=== PATIENT | female | born 1965 | race Caucasian/White ===

== ENCOUNTER 2018-03-13 09:39 | Inpatient (IN) | payer OTHER ==
[2018-03-12 12:42] VITALS: BMI 47.0
[~2018-03-13 09:39] MED LIST: BUPIVACAINE HCL/PF 0.5% (5MG/ML) 10 ML VIAL IJ ONE
--- NOTE | 2018-03-13 10:45 | HP ---
Admitting History and Physical - Admission Chief Complaint: Morbid obesity History Source: Patient Limitations to Obtaining History: No Limitations - Past Medical History Cardiovascular: Yes: HTN ...LMP: 12/31/17 ...: No - Smoking History Smoking history: Former smoker Have you smoked in the past 12 months: No - Alcohol/Substance Use Hx Alcohol Use: Yes (social) Home Medications - Allergies Allergies/Adverse Reactions: Allergies Allergy/AdvReac Type Severity Reaction Status Date / Time No Known Allergies Allergy Verified 03/12/18 12:34 - Home Medications Home Medications: Ambulatory Orders Levothyroxine Sodium [Levo-T] 100 mcg PO DAILY 03/12/18 Losartan/Hydrochlorothiazide [Losartan-Hctz 50-12.5 mg Tab] 1 each PO DAILY Famotidine [Pepcid] 20 mg PO BID #60 tablet 03/13/18 Oxycodone HCl/Acetaminophen [Percocet 5-325 mg Tablet] 1 - 2 tab PO Q6H #28 tab MDD 4 03/13/18 Family Disease History - Family Disease History Family History: Denies Review of Systems - Review of Systems Constitutional: denies: Chills, Fever HENT: reports: No Symptoms Neck: reports: No Symptoms Cardiovascular: reports: No Symptoms Respiratory: reports: No Symptoms Gastrointestinal: reports: No Symptoms Neurological: reports: No Symptoms Pain Intensity: 0 Physical Examination Vital Signs: Vital Signs Temperature 98.8 F 03/12/18 12:35 Pulse Rate 73 03/12/18 12:35 Respiratory Rate 20 03/12/18 12:35 Blood Pressure 131/77 03/12/18 12:35 O2 Sat by Pulse Oximetry (%) Constitutional: Yes: No Distress HENT: Yes: WNL Neck: Yes: WNL Cardiovascular: Yes: WNL Respiratory: Yes: WNL Gastrointestinal: Yes: Soft, Abdomen, Obese Neurological: Yes: Alert, Oriented Problem List - Problems (1) Morbid obesity due to excess calories Code(s): E66.01 - MORBID (SEVERE) OBESITY DUE TO EXCESS CALORIES (2) BMI 45.0-49.9, adult Code(s): Z68.42 - BODY MASS INDEX (BMI) 45.0-49.9, ADULT (3) Hypertension Code(s): I10 - ESSENTIAL (PRIMARY) HYPERTENSION Qualifiers: Hypertension type: unspecified Qualified Code(s): I10 - Essential (primary ) hypertension Assessment/Plan Laparoscopic possible open vertical sleeve gastrectomy, possible liver biopsy, EGD
[2018-03-13] MEDS ORDERED: ROCURONIUM BROMIDE 50 MG/5 ML VIAL ONE ×2 (11:13→12:45)
[2018-03-13] MEDS ORDERED: MIDAZOLAM HCL 2 MG/2 ML SINGLE DOSE VIAL ONE (11:13)
[2018-03-13] MEDS ORDERED: PROPOFOL 20 ML ONE (11:13)
[2018-03-13] MEDS ORDERED: fentaNYL CITRATE 250 MCG/5 ML VIAL ONE (11:13)
[2018-03-13] MEDS ORDERED: LIDOCAINE HCL/PF 2% SDV 5ML VIAL ONE (11:15)
[2018-03-13] MEDS ORDERED: DEXAMETHASONE SOD PHOSPHATE 4 MG/1 ML VIAL ONE (11:15)
[2018-03-13] MEDS ORDERED: ONDANSETRON 4 MG/2 ML VIAL IVPUSH PRN (11:26)
[2018-03-13] MEDS ORDERED: LACTATED RINGERS SOLUTION 1,000 ML IV SCH (11:30)
[2018-03-13] MEDS ORDERED: BUPIVACAINE HCL/PF 0.5% (5MG/ML) 10 ML VIAL ONE ×2 (11:32→12:10)
[2018-03-13] MEDS ORDERED: ceFAZolin SODIUM 1 GM VIAL IVPB ONE (11:55)
[2018-03-13] MEDS ORDERED: ceFAZolin SODIUM 1 GM VIAL ONE (12:00)
[2018-03-13] MEDS ORDERED: BUPIVACAINE HCL/PF 0.5% (5MG/ML) 10 ML VIAL IJ ONE (12:12)
[2018-03-13] MEDS ORDERED: ePHEDrine SULFATE 50 MG/1 ML AMPULE ONE (12:29)
--- NOTE | 2018-03-13 13:26 | OP ---
Operative Note - Note: Operative Date: 03/13/18 Pre-Operative Diagnosis: Morbid obesity. BMI 47 Operation: Laparoscopic vertical sleeve gastrectomy, wedge liver biopsy, EGD Post-Operative Diagnosis: Other (Morbid obesity, BMiI 47, hepatomegaly) Surgeon: Tano Lambert (Nalini Marlow) Orchard Pruner: Dre Antonio Anesthesia: General Specimens Removed: Greater curvature of stomach. Wedge liver biopsy Estimated Blood Loss (mls): 30 Drains & Tubes with Location: 36 Fr Bougie Operative Report Dictated: Yes
[2018-03-13] MEDS ORDERED: SODIUM CHLORIDE 1,000 ML IV SCH (13:30)
--- NOTE | 2018-03-13 13:43 | SPEC ---
DATE OF OPERATION: 03/13/2018 SURGEON: Tano Lambert MD PARTS CLERK PLANT MAINTENANCE: AIDEN Cash and Nalini Marlow PREOPERATIVE DIAGNOSES: 1. Morbid obesity. 2. Body mass index 47.1. POSTOPERATIVE DIAGNOSES: 1. Morbid obesity. 2. Body mass index 47.1. 3. Hepatomegaly. PROCEDURES: 1. Laparoscopic vertical sleeve gastrectomy. 2. Laparoscopic wedge liver biopsy. 3. Upper endoscopy. SPECIMENS: 1. Greater curvature of the stomach. 2. Wedge liver biopsy. ESTIMATED BLOOD LOSS: 30 mL. DRAIN: None. ANESTHESIA: GET. BOUGIE SIZE: 36 Filipino. REASON FOR PROCEDURE: This 52-year-old female presents for weight loss options. After describing the different weight loss options, she decided to proceed with a laparoscopic, possible open, vertical sleeve gastrectomy, possible liver biopsy, and upper endoscopy. The risks and benefits of the procedure were explained. RISKS AND BENEFITS: After describing the different options for management of weight loss, the patient decided to proceed with a robotic laparoscopic, possible open vertical sleeve gastrectomy. The patient was seen by the respective subspecialities and cleared for surgery. The risks and benefits of the procedure were explained. These included bleeding, infection, hernia, OH, DVT, PE, injury to surrounding structures including the liver, colon, bowel, spleen, esophagus, vessel injury, nerve injury, weight regain, gastric leak, staple line leak, sleeve leak, obstruction, vitamin deficiency, hair loss, and as some of the possible complications. The patient understood and signed informed consent. DESCRIPTION OF PROCEDURE: The patient was placed supine on the operating room table. The patient underwent general endotracheal intubation. A Barnhart catheter was inserted by the nursing staff. The arms were brought out at 90 degrees and secured. A foot board was placed, and the legs were secured laterally with padding. The abdomen was prepped and draped in the usual sterile fashion. A time-out was performed. An incision was made superior and to the left of the umbilicus. A Veress needle was inserted. Pneumoperitoneum was established. Subsequently the Veress needle was removed. An 8-mm robotic trocar was placed under direct visualization with the laparoscope. Inspection of the abdominal cavity was performed. An 8-mm trocar was then placed in the left abdominal wall approximately 6 to 7 cm to the left of the initial trocar. An 8-mm robotic trocar was then placed in the left abdominal wall approximately 6 to 7 cm to the left of the initial trocar. A 12-mm robotic trocar was then placed in the right abdominal wall approximately 6 to 7 cm to the right of the initial trocar and an 8-mm robotic trocar placed approximately 6 to 7 cm lateral to the 12-mm trocar. A stab wound was made in the subxiphoid area and a Claudia clamp inserted and removed to dilate the tract. A Arun liver retractor was inserted. The post was secured at the bedside by the nursing staff. The patient was placed in steep reverse Trendelenburg position and the Arun liver retractor was used to secure the liver towards the anterior abdominal wall. The robot was brought over the field and docked. Dissection was performed at the console. The pylorus was identified and 6 cm proximal to it the lesser sac was entered using the vessel sealer. From this point cephalad, all lateral attachments to the greater curvature of the stomach including the short gastric vessels were ligated using the vessel sealer towards the gastrosplenic and gastrophrenic ligaments. Once this was done in its entirety, all tubes within the nasal or oropharyngeal cavity including a temperature probe was confirmed to be removed by Anesthesia. The bougie was then inserted by Anesthesia. Transection of the stomach was then begun staying adjacent to the bougie, but away from the angularis. Transection of the stomach was performed near the portion of the stomach where the lesser sac was entered. Two robotic green germain were used at this location. Robotic blue germain were then used for the remainder of the transection until the greater curvature of the stomach was fully transected. Again, this was done staying close to the bougie. Care was taken to stay away from the angle of His cephalad. The staple line was then inspected. Hemostasis was identified. A leak test was then performed. The stomach was clamped distally to the staple line. Irrigation solution was placed in the left upper quadrant and air insufflated by Anesthesia into the sleeve. No leaks were identified, and no obstruction was identified. This was done throughout the staple line. At this point, the irrigation solution was suctioned and again hemostasis noted. A wedge liver biopsy was then performed. A portion of the left lobe of the liver was identified and an edge of it grasped. Using electrocautery, a wedge of this portion of the liver was excised. The specimen was removed from the abdominal cavity and sent off the field. Hemostasis of the biopsy site as attained using electrocautery. The robotic instruments were then removed. The robot was undocked from the operative field. The 12-mm robotic trocar was removed, and the greater curvature specimen removed from this site using a sponge stick edwards. The specimen was inspected and the Veress needle inserted. The specimen insufflated adequately, and no leak was identified. The staple line was noted to be straight and intact. A Bryan-Cezar device was then used to close the fascia with a 0 Vicryl suture at this site. The liver retractor was removed under direct visualization. Pneumoperitoneum was desufflated and the fascial suture was secured. Hemostasis was noted at all incision sites and Marcaine was injected at all incision sites. All incision sites were closed using 4-0 Biosyn. Sterile dressings were applied. The patient tolerated the procedure well and was transferred to the recovery room in stable condition with a Barnhart catheter intact. The patient was transferred to telemetry for further monitoring. [place] [id number]
--- NOTE | 2018-03-13 13:59 | SURG ---
Surgery Hole Digger Operator Note Hole Digger Operator: Dre Antonio PA-C Date of Service: 03/13/18 Diagnosis: morbid obesity Procedure: Laparoscopic vertical sleeve gastrectomy, wedge liver biopsy, EGD I was present for the entirety of the operative procedure. For further detail, please refer to operative report. Visit type - Case Type Case Type: Scheduled - New patient This patient is new to me today: Yes Date on this admission: 03/13/18
[2018-03-13] MEDS: METOCLOPRAMIDE HCL INJECTION 10 MG/2 ML VIAL IVPUSH SCH ×2 (14:00→21:26)
[2018-03-13] MEDS: ONDANSETRON 4 MG/2 ML VIAL IVPUSH SCH ×3 (14:30→22:26)
[2018-03-13] MEDS: ACETAMINOPHEN 1000 MG/100 ML VIAL (NON FORMULARY) IVPB SCH ×2 (14:55→20:00)
[2018-03-13 15:06] LABS: HEMATOCRIT 38.4 % (32.4-45.2); HEMOGLOBIN 12.9 GM/dL (10.7-15.3); MCH 31.3 pg (25.7-33.7); MCHC 33.5 g/dl (32.0-36.0); MEAN CELL VOLUME 93.4 fl (80-96); PLATELET COUNT 241 K/MM3 (134-434); RBC 4.11 M/mm3 (3.60-5.2); RDW 13.3 % (11.6-15.6); WHITE BLOOD COUNT 8.6 K/mm3 (4.0-10.0)
[2018-03-13 15:37] LABS: ALBUMIN 3.4 g/dl (3.4-5.0); ALK PHOS 93 U/L (45-117); ANION GAP 6 MMOL/L (8-16); BILIRUBIN,TOTAL 0.2 mg/dL (0.2-1); BLOOD UREA NITROGEN 12 mg/dL (7-18); CALCIUM 8.2 mg/dL (8.5-10.1); CHLORIDE 107 mmol/L (98-107); CO2 28 mmol/L (21-32); CREATININE 0.7 mg/dL (0.55-1.3); GLUCOSE,RANDOM 140 mg/dL (74-106); POTASSIUM 3.6 mmol/L (3.5-5.1); SGOT/AST 120 U/L (15-37); SGPT/ALT 100 U/L (13-61); SODIUM 141 mmol/L (136-145)
[2018-03-13] MEDS: morphine SULFATE 4 MG/ML VIAL IVPUSH PRN (17:22)
[2018-03-13] MEDS: ENOXAPARIN NA (PORCINE) 40 MG/0.4 ML DISP.SYRIN SQ SCH (22:30)
[2018-03-13] MEDS: FAMOTIDINE 20 MG/50 ML IVPB 20 MG/50 ML MG IVPB SCH (22:31)
[2018-03-14] MEDS: METOCLOPRAMIDE HCL INJECTION 10 MG/2 ML VIAL IVPUSH SCH ×2 (02:13→09:48)
[2018-03-14] MEDS: ACETAMINOPHEN 1000 MG/100 ML VIAL (NON FORMULARY) IVPB SCH ×2 (02:13→08:06)
[2018-03-14] MEDS: ONDANSETRON 4 MG/2 ML VIAL IVPUSH SCH ×3 (02:14→09:56)
[2018-03-14 06:21] LABS: HEMATOCRIT 34.2 % (32.4-45.2); HEMOGLOBIN 11.1 GM/dL (10.7-15.3); MCH 30.4 pg (25.7-33.7); MCHC 32.5 g/dl (32.0-36.0); MEAN CELL VOLUME 93.6 fl (80-96); MEAN PLT VOLUME 9.1 fl (7.5-11.1); PLATELET COUNT 216 K/MM3 (134-434); RBC 3.66 M/mm3 (3.60-5.2); RDW 13.3 % (11.6-15.6); WHITE BLOOD COUNT 6.9 K/mm3 (4.0-10.0)
[2018-03-14 06:53] LABS: ALBUMIN 2.9 g/dl (3.4-5.0); ALK PHOS 76 U/L (45-117); ANION GAP 7 MMOL/L (8-16); BILIRUBIN,TOTAL 0.4 mg/dL (0.2-1); BLOOD UREA NITROGEN 13 mg/dL (7-18); CALCIUM 8.2 mg/dL (8.5-10.1); CHLORIDE 108 mmol/L (98-107); CO2 27 mmol/L (21-32); CREATININE 0.6 mg/dL (0.55-1.3); GLUCOSE,RANDOM 85 mg/dL (74-106); POTASSIUM 3.8 mmol/L (3.5-5.1); SGOT/AST 78 U/L (15-37); SGPT/ALT 81 U/L (13-61); SODIUM 142 mmol/L (136-145)
[2018-03-14] MEDS: morphine SULFATE 4 MG/ML VIAL IVPUSH PRN (07:03)
--- NOTE | 2018-03-14 08:10 | PN ---
Progress Note (short form) - Note Progress Note: Pt seen and examined. States she is feeling well this morning. Denies any abdominal pain or discomfort. Tolerating ice chips without n/v. Has been oob to the restroom without issue. +Voiding. Denies cp, sob, calf pain/tenderness. Vital Signs Temp 98.8 F 03/14/18 06:00 Pulse 86 03/14/18 06:00 Resp 18 03/14/18 06:00 BP 126/68 03/14/18 06:00 Pulse Ox 97 03/13/18 21:00 Intake & Output 03/13/18 03/13/18 03/14/18 11:59 23:59 11:59 Intake Total 8592 147 5098 Output Total 575 Balance 4814 378 9033 Weight 203 lb Intake: IV 6111 482 2941 Normal Saline - 1,000 ml 300 1800 @ 150 mls/hr IV ASDIR XIMENA Rx#:[id number] IVPB 100 200 Output: Urine 550 Void 550 Estimated Blood Loss 25 Other: Voiding Method Toilet # Unmeasured Voids Void 1 2 Weight Measurement Method Standing Scale CBC, BMP 03/14/18 05:30 03/14/18 05:30 Gen: awake, alert, in nad. Laying in bed. Resp: cta b/l CV: rrr, s1s2, no murmur appreciated Abdomen: soft, nontender, nondistended. Bandaids c/d/i, no bleeding, no surrounding erythema or ecchymosis noted. No palpable hematoma. A/P: 52 y/o F w/ PMHx HTN, hypothyroidism, morbid obesity, now POD 1, s/p Laparoscopic vertical sleeve gastrectomy, wedge liver biopsy, EGD. Doing well post op, no pain, VSS, Labs wnl. P: Upper GI series this AM Pain control with Ofirmev 1g q6h, Morphine 4mg q4hrs prn DVT prophylaxis with Lovenox 40mg bid, b/l SCDS, b/l TEDS GI prophylaxis with Pepcid 20mg IV BID Zofran 4mg q4hrs prn n/v Remote tele/continuous pulse ox Monitor VS Monitor I&Os OOB ad juan Continue IVF Incentive spirometry <Marielos Marlow - Last Filed: 03/14/18 08:23> - Note Progress Note: POD 1 Pain controlled No nausea AVSS Abd soft UGI: no leak/obstruction Clears Discharge home <Tano Lambert - Last Filed: 03/14/18 12:40> Problem List - Problems (1) Morbid obesity due to excess calories Code(s): E66.01 - MORBID (SEVERE) OBESITY DUE TO EXCESS CALORIES (2) BMI 45.0-49.9, adult Code(s): Z68.42 - BODY MASS INDEX (BMI) 45.0-49.9, ADULT (3) Hypertension Code(s): I10 - ESSENTIAL (PRIMARY) HYPERTENSION Qualifiers: Hypertension type: unspecified Qualified Code(s): I10 - Essential (primary ) hypertension <Tano Lambert - Last Filed: 03/14/18 12:40>
[2018-03-14 09:47] VITALS: BP 129/84; PULSE 81; TEMP 99.1
[2018-03-14] MEDS: ENOXAPARIN NA (PORCINE) 40 MG/0.4 ML DISP.SYRIN SQ SCH (09:48)
[2018-03-14] MEDS: FAMOTIDINE 20 MG/50 ML IVPB 20 MG/50 ML MG IVPB SCH (09:48)
[2018-03-14] MEDS ORDERED: oxyCODONE HCL 5 MG TABLET PO PRN (12:30)
[2018-03-14] MEDS ORDERED: SODIUM CHLORIDE 1,000 ML IV SCH (12:30)
--- NOTE | 2018-03-15 16:22 | PATH ---
Surgical Pathology Report Patient Name: VERA TY [facility]. Rec. #: [id number] /Age/Gender: 1965 (Age: 52) / F Account: [id number] Location: 4 W TELEMETRY U Taken: 03/13/2018 Received: 03/14/2018 Reported: 03/15/2018 Physicians: Tano Lambert M.D. Specimen(s) Received A: GREATER CURVATURE STOMACH B: LIVER WEDGE BIOPSY Clinical History Morbid obesity Final Diagnosis A. STOMACH, GREATER CURVATURE, LAPAROSCOPIC VERTICAL SLEEVE GASTRECTOMY: PORTION OF STOMACH WITH MODERATE CHRONIC ACTIVE GASTRITIS. IMMUNOHISTOCHEMICAL STAIN FOR H. PYLORI IS POSITIVE (MANY). B. LIVER, BIOPSY: LIVER PARENCHYMA WITH MILD STEATOSIS (~15-20%). NO INCREASE IN IRON AND FIBROSIS ON PERFORMED SPECIAL STAINS (IRON AND TRICHROME). Electronically Signed Cayla Mcclure M.D. Gross Description A. Received in formalin, labeled "greater curvature of stomach," is a 93 gram, 15 x 4 x 3 cm. portion of stomach with a stapled margin of resection. The serosa is humphries-felix with minimal attached fat. The mucosa is humphries-pink with normal folds. No mucosal masses are identified. Lung Puller sections are submitted in one cassette. B. Received in formalin labeled as "wedge liver biopsy" is an irregular fragment of humphries liver tissue measuring 2 x 1.5 x 1.5 cm. Lung Puller sections are submitted in one cassette. MLSZ/03/14/2018 sansantosh/03/14/2018
== END 2018-03-14 13:44 | disposition home or self-care (01) | DRG 403 ==
LOC: JSAMEDAYSX 09:39 → EDSTATUS 12:00 → J4W 17:19
PROVIDERS: ADMIT Surgery; ATTEND Surgery
PROC: 0DB64Z3 Excision of Stomach, Percutaneous Endoscopic Approach, Vertical (ICD-10-PCS; principal; 2018-03-13 12:00)
PROC: 0FB24ZX Excision of Left Lobe Liver, Percutaneous Endoscopic Approach, Diagnostic (ICD-10-PCS; 2018-03-13 12:00)
PROC: 8E0W4CZ Robotic Assisted Procedure of Trunk Region, Percutaneous Endoscopic Approach (ICD-10-PCS; 2018-03-13 12:00)
DX: E66.01 Morbid (severe) obesity due to excess calories (principal); Z68.42 Body mass index [BMI] 45.0-49.9, adult; I10 Essential (primary) hypertension; Z87.891 Personal history of nicotine dependence; R16.0 Hepatomegaly, not elsewhere classified
CPT/HCPCS: 36415; 74241-TC-FY; 80053; 84703; 85027; 86850; 86900; 86901; 88307-TC; 94760; J0131; J7030

== ENCOUNTER 2020-01-01 15:33 | Emergency (ER) | payer OTHER ==
[2020-01-01 15:42] VITALS: TEMP 98.6; BMI 30.9
--- NOTE | 2020-01-01 16:11 | PDOC ---
History of Present Illness <Elisha Souza - Last Filed: 01/01/20 17:34> - History of Present Illness Initial Comments: 01/01/20 16:05 54 y/o F with PMH of HTN andh Hypothyroid presents foe evaluation of lightheadedness and R anterior thigh numbness x3 weeks. No systemic symptoms. <Donaldo Cabrera - Last Filed: 01/01/20 18:53> - General Chief Complaint: Lightheaded Stated Complaint: RT. LEG NUMBNESS Time Seen by Provider: 01/01/20 15:57 Past History <Elisha Souzadareksimran - Last Filed: 01/01/20 17:34> - Medical History Anemia: No Asthma: Yes Cancer: No Cardiac Disorders: No COPD: No CHF: No Dementia: No Diabetes: No HTN: Yes Thyroid Disease: Yes - Surgical History Abdominal Surgery: Yes (liposuction) - Immunization History Immunization Up to Date: No - Psycho-Social/Smoking History Smoking History: Never smoked Have you smoked in the past 12 months: No Information on smoking cessation initiated: No - Substance Abuse Hx (Audit-C & DAST Scrn) How often the patient has a drink containing alcohol: Never Score: In Men: 4 or > Positive; In Women: 3 or > Positive: 0 Screen Result (Pos requires Nsg. Audit-10AR): Negative In the last yr the pt used illegal drug/Rx for NonMed reason: No Score: Yes response is considered Positive: 0 Screen Result (Positive result requires Nsg. DAST-10): Negative <Donaldo Cabrera - Last Filed: 01/01/20 18:53> - Medical History Allergies/Adverse Reactions: Allergies Allergy/AdvReac Type Severity Reaction Status Date / Time No Known Allergies Allergy Verified 03/13/18 10:52 Home Medications: Ambulatory Orders Levothyroxine Sodium [Levo-T] 100 mcg PO DAILY 03/12/18 Losartan/Hydrochlorothiazide [Losartan-Hctz 50-12.5 mg Tab] 1 each PO DAILY 03/12/18 Famotidine [Pepcid] 20 mg PO BID #60 tablet 03/13/18 Oxycodone HCl/Acetaminophen [Percocet 5-325 mg Tablet] 1 - 2 tab PO Q6H #28 tab MDD 4 03/13/18 Review of Systems - Review of Systems Cardiac (ROS): Yes: Lightheadedness. No: Chest Pain Neurological: Yes: Numbness <Donaldo Cabrera - Last Filed: 01/01/20 18:53> *Physical Exam - Vital Signs Last Vital Signs Temp Pulse Resp BP Pulse Ox 98.6 F 82 16 144/94 99 01/01/20 15:40 01/01/20 15:40 01/01/20 15:40 01/01/20 15:40 01/01/20 15:40 <Elisha Souza - Last Filed: 01/01/20 17:34> - Vital Signs Last Vital Signs Temp Pulse Resp BP Pulse Ox 98.6 F 82 16 144/94 99 01/01/20 15:40 01/01/20 15:40 01/01/20 15:40 01/01/20 15:40 01/01/20 15:40 - Physical Exam 01/01/20 18:51 GENERAL: The patient is awake, alert, and fully oriented, in no acute distress. HEAD: Normal with no signs of trauma. EYES: sclera anicteric, conjunctiva clear. ENT: Ears normal tympanic membranes normal oropharynx clear uvula midline NECK: Normal range of motion LUNGS: Breath sounds equal, clear to auscultation bilaterally. No wheezes, and no crackles. HEART: S1 and S2 without murmur, rub or gallop. ABDOMEN: Soft, nontender, normoactive bowel sounds. No guarding, no rebound. No masses. EXTREMITIES: Normal range of motion, no edema. No clubbing or cyanosis. No cords, erythema, or tenderness. NEUROLOGICAL: Cranial nerves II through XII grossly intact. PSYCH: Normal mood, normal affect. SKIN: Warm, Dry, normal turgor, no rashes or lesions noted. Lumbar spine skin color temperature normal range of motion is slightly decreased. No midline tenderness. Moderate bilateral paralumbar musculature spasm and tenderness 5 out of 5 strength bilateral lower extremities without gross sensorimotor deficits thighs and calves are soft and nontender neurovascular intact negative straight leg raise test <Donaldo Cabrera - Last Filed: 01/01/20 18:53> Heart Score/ECG Review #1 ECG reviewed & interpreted by me at: 16:30 General ECG Interpretation: Sinus Rhythm, Normal Rate, Normal Intervals 01/01/20 17:34 EKG normal sinus rhythm 60 bpm, no interval abnormalities, narrow QRS, ST and T wave segments and morphology normal. <Elisha Souza - Last Filed: 01/01/20 17:34> ED Treatment Course - LABORATORY CBC & Chemistry Diagram: 01/01/20 16:15 01/01/20 16:15 - ADDITIONAL ORDERS Additional order review: Laboratory Results 01/01/20 01/01/20 01/01/20 16:55 16:15 16:15 PT with INR 11.60 INR 0.98 Sodium 140 Potassium 3.6 Chloride 103 Carbon Dioxide 31 Anion Gap 6 L BUN 18.5 H Creatinine 0.7 Est GFR (CKD-EPI)AfAm 113.05 Est GFR (CKD-EPI)NonAf 97.54 Random Glucose 86 Calcium 9.1 Total Bilirubin 0.5 AST 21 ALT 25 Alkaline Phosphatase 112 Creatine Kinase 91 Troponin I < 0.02 Total Protein 7.6 Albumin 3.8 Urine Color Yellow Urine Appearance Clear Urine pH 7.5 Ur Specific [place] 1.005 L Urine Protein Negative Urine Glucose (UA) Negative Urine Ketones Negative Urine Blood Negative Urine Nitrite Negative Urine Bilirubin Negative Urine Urobilinogen 0.2 Ur Leukocyte Esterase Trace Urine WBC (Auto) 29 Urine RBC (Auto) 7 Urine Casts (Auto) 0 U Epithel Cells (Auto) 12 Urine Bacteria (Auto) 86 01/01/20 16:15 RBC 4.01 MCV 96.5 H MCHC 33.5 RDW 13.6 MPV 9.1 Neutrophils % 58.2 Lymphocytes % 32.8 Monocytes % 7.4 Eosinophils % 0.9 Basophils % 0.7 <Elisha Souza - Last Filed: 01/01/20 17:34> - LABORATORY CBC & Chemistry Diagram: 01/01/20 16:15 01/01/20 16:15 - RADIOLOGY Radiology Studies Ordered: Category Date Time Status CHEST PA & LAT [RAD] Stat Radiology 01/01/20 15:58 Ordered <Donaldo Cabrera - Last Filed: 01/01/20 18:53> Medical Decision Making - Medical Decision Making 01/01/20 17:34 Vital Signs Temp Pulse Resp BP Pulse Ox 98.6 F 82 16 144/94 99 01/01/20 15:40 01/01/20 15:40 01/01/20 15:40 01/01/20 15:40 01/01/20 15:40 The patient was seen and evaluated in conjunction with midlevel provider under my direct supervision, ancillary studies were reviewed. I agree with the plan as outlined with AIDEN Cabrera. HPI, workup/dispo as outlined. VS reviewed, wnl. anticipate discharge, pcp followup, return precautions <LibbyElishameme Jorgensen - Last Filed: 01/01/20 17:34> - Medical Decision Making 01/01/20 18:52 Patient feeling better. No dizziness no gross sensorimotor deficits on examination urine was reviewed with patient last week she states she started an antibiotic for urinary tract infection which she has not finished she continues to take the medication. She will follow-up with her doctor for further evaluation I have reviewed the pathophysiology with the patient. They are in agreement with the treatment plan all questions were answered to their satisfaction. Understanding for follow-up without fail was also conveyed to the patient. Again they are in agreement. <Donaldo Cabrera - Last Filed: 01/01/20 18:53> Discharge <Elisha Souza - Last Filed: 01/01/20 17:34> - Discharge Information Problems reviewed: Yes - Admission No <Donaldo Cabrera - Last Filed: 01/01/20 18:53> - Discharge Information Clinical Impression/Diagnosis: Dizziness Condition: Stable Disposition: HOME - Follow up/Referral Referrals: Payal Chaudhari MD [Primary Care Provider] - - Patient Discharge Instructions Additional Instructions: Return to the emergency room for worsening symptoms and without fail follow-up with your primary care physician in 1 to 2 days for further evaluation and treatment options. Continue the antibiotics you were given as directed.
[2020-01-01 16:38] LABS: BASO % 0.7 % (0-2.0); EOS % 0.9 % (0-4.5); HEMATOCRIT 38.7 % (32.4-45.2); LYMPH % 32.8 % (8-40); MCH 32.3 pg (25.7-33.7); MCHC 33.5 g/dl (32.0-36.0); MEAN CELL VOLUME 96.5 fl (80-96); MEAN PLT VOLUME 9.1 fl (7.5-11.1); MONO % 7.4 % (3.8-10.2); NEUT % 58.2 % (42.8-82.8); PLATELET COUNT 249 K/MM3 (134-434); RBC 4.01 M/mm3 (3.60-5.2); RDW 13.6 % (11.6-15.6); WHITE BLOOD COUNT 5.4 K/mm3 (4.0-10.0)
[2020-01-01 16:45] LABS: INR 0.98 (0.83-1.09); PROTHROMBIN TIME (PATIENT) 11.6 SEC (9.7-13.0)
[2020-01-01 16:57] LABS: ALBUMIN 3.8 g/dl (3.4-5.0); ALK PHOS 112 U/L (45-117); ANION GAP 6 MMOL/L (8-16); BILIRUBIN,TOTAL 0.5 mg/dL (0.2-1); BLOOD UREA NITROGEN 18.5 mg/dL (7-18); CALCIUM 9.1 mg/dL (8.5-10.1); CHLORIDE 103 mmol/L (98-107); CO2 31 mmol/L (21-32); CREATININE 0.7 mg/dL (0.55-1.3); GLUCOSE,RANDOM 86 mg/dL (74-106); POTASSIUM 3.6 mmol/L (3.5-5.1); SGOT/AST 21 U/L (15-37); SGPT/ALT 25 U/L (13-61); SODIUM 140 mmol/L (136-145); TOT PROT 7.6 g/dl (6.4-8.2)
[2020-01-01 17:24] LABS: EPI CELLS 12 /uL (0-25.1); HYALINE CASTS 0 /uL (0-3.1); PH,URINE 7.5 (5.0-8.0); URINE APPEARANCE CLEAR; URINE BACTERIA 86 /uL (0-1359); URINE BILIRUBIN NEGATIVE (NEGATIVE); URINE COLOR YELLOW; URINE GLUCOSE (UA) NEGATIVE (NEGATIVE); URINE KETONE NEGATIVE (NEGATIVE); URINE LEUK ESTERASE TRACE (NEGATIVE); URINE NITRITE NEGATIVE (NEGATIVE); URINE PROTEIN NEGATIVE (NEGATIVE); URINE RBC 7 /uL (0-23.9); URINE UROBILINOGEN 0.2 mg/dL (0.2-1.0); URINE WBC 29 /uL (0-25.8)
[2020-01-01 19:04] VITALS: BP 125/80; PULSE 75
--- NOTE | 2020-01-02 11:53 | EKG ---
Test Reason : Blood Pressure : / mmHG Vent. Rate : 068 BPM Atrial Rate : 068 BPM P-R Int : 124 ms QRS Dur : 084 ms QT Int : 402 ms P-R-T Axes : 007 033 027 degrees QTc Int : 427 ms NORMAL SINUS RHYTHM NORMAL ECG NO PREVIOUS ECGS AVAILABLE Confirmed by AV BARRIOS MD ([id number]) on 01/02/2020 11:53:33 AM Referred By: Confirmed By:AV BARRIOS MD
== END 2020-01-01 19:04 | disposition home or self-care (01) ==
LOC: JER 15:33
DX: R42 Dizziness and giddiness (principal)
CPT/HCPCS: 36415; 71046-TC-FY; 80053; 81003; 82550; 84484; 85025; 85610; 93005; 93010; 99285-25

== ENCOUNTER 2020-02-10 15:26 | Emergency (ER) | payer OTHER ==
[2020-02-10 15:38] VITALS: TEMP 98.2; BMI 32.3
[2020-02-10] MEDS ORDERED: SODIUM CHLORIDE 1,000 ML IV STA (15:38)
[2020-02-10] MEDS ORDERED: ACETAMINOPHEN 1000 MG/100 ML VIAL (NON FORMULARY) IVPB ONE (15:38)
--- NOTE | 2020-02-10 15:38 | PDOC ---
Rapid Medical Evaluation Time Seen by Provider: 02/10/20 15:34 Medical Evaluation: Allergies Allergy/AdvReac Type Severity Reaction Status Date / Time No Known Allergies Allergy Verified 02/10/20 15:34 02/10/20 15:34 Pt presents for evaluation of headache, and palpitations since this morning Exam: appears uncomfortable, no gross neuro deficits Orders: labs, EKG, IVF Pt to proceed to the ER for further evaluation Discharge Disposition - Diagnosis Palpitations - Referrals - Patient Instructions - Post Discharge Activity
[2020-02-10] MEDS ORDERED: ACETAMINOPHEN INJECTION 100 ML IVPB ONE (15:50)
--- NOTE | 2020-02-10 16:42 | PDOC ---
*Physical Exam - Vital Signs Last Vital Signs Temp Pulse Resp BP Pulse Ox 98.2 F 93 H 16 123/81 95 02/10/20 15:34 02/10/20 16:11 02/10/20 16:11 02/10/20 16:11 02/10/20 16:11 - Physical Exam 02/10/20 16:28 PCP: Payal Chaudhari HPI: 54yo F pmh hypothyroidism, insomnia, hypertension presenting following an episode of hypertension and tachycardia this morning. Patient has not slept well for 2 days, poor PO because she doesn't like drinking water / eating much, took her BP this morning before taking her medications, noted it to be 140s/80s and became concerned reporting she was very nervous. Her heart rate then increased to 150 while she obtained her BP medication and her pressure remained elevated for 30min to an hour. She had chest tightness and anxiety at this time that resolved as her pressure improved to 117/76. She endorsed a frontal headache similar to previous that resolved with Tylenol. Preior preoperative stress test 2 years ago was normal. At present denies all ROS / symptoms. All: NKDA PMH: As above PSH: Per chart ED Treatment Course - Medications Given in the ED: ED Medications Discontinued Medications Generic Name Dose Route Start Last Admin Trade Name Freq PRN Reason Stop Dose Admin Acetaminophen 1,000 mg 02/10/20 15:38 02/10/20 16:00 Ofirmev Injection - IVPB 02/10/20 15:39 1,000 mg ONCE ONE Administration Discharge - Discharge Information Clinical Impression/Diagnosis: Palpitations - Follow up/Referral Referrals: Payal Chaudhari MD [Primary Care Provider] - - Patient Discharge Instructions - Post Discharge Activity
--- NOTE | 2020-02-10 16:49 | PDOC ---
History of Present Illness - General Chief Complaint: Palpitations Stated Complaint: BP PROBLEM Time Seen by Provider: 02/10/20 15:34 - History of Present Illness Initial Comments: 02/10/20 16:28 PCP: Payal Chaudhari HPI: 54yo F pmh hypothyroidism, insomnia, hypertension presenting following a transient episode of hypertension and tachycardia this morning. Patient has not slept well for 2 days, poor PO because she doesn't like drinking water / eating much, took her BP this morning before taking her medications, noted it to be 140 s/80s and became concerned reporting she was very nervous. Her heart rate then increased to 150 while she obtained her BP medication and her pressure remained elevated for 30min to an hour. She had chest tightness and anxiety at this time that resolved as her pressure improved to 117/76. She endorsed a frontal headache similar to previous that resolved with Tylenol. Preior preoperative stress test 2 years ago was normal. At present denies all ROS / symptoms. All: NKDA PMH: As above PSH: Per chart Past History - Travel History Traveled outside of the country in the last 30 days: No Close contact w/someone who was outside of country & ill: No - Medical History Allergies/Adverse Reactions: Allergies Allergy/AdvReac Type Severity Reaction Status Date / Time No Known Allergies Allergy Verified 02/10/20 15:34 Home Medications: Ambulatory Orders Levothyroxine Sodium [Levo-T] 100 mcg PO DAILY 03/12/18 Losartan/Hydrochlorothiazide [Losartan-Hctz 50-12.5 mg Tab] 1 each PO DAILY 03/12/18 Famotidine [Pepcid] 20 mg PO BID #60 tablet 03/13/18 Oxycodone HCl/Acetaminophen [Percocet 5-325 mg Tablet] 1 - 2 tab PO Q6H #28 tab MDD 4 03/13/18 Anemia: No Asthma: Yes Cancer: No Cardiac Disorders: No COPD: No CHF: No Dementia: No Diabetes: No HTN: Yes Thyroid Disease: Yes - Surgical History Abdominal Surgery: Yes (liposuction) - Immunization History Immunization Up to Date: No - Psycho-Social/Smoking History Smoking History: Never smoked Have you smoked in the past 12 months: No - Substance Abuse Hx (Audit-C & DAST Scrn) How often the patient has a drink containing alcohol: Never Score: In Men: 4 or > Positive; In Women: 3 or > Positive: 0 Screen Result (Pos requires Nsg. Audit-10AR): Negative In the last yr the pt used illegal drug/Rx for NonMed reason: No Score: Yes response is considered Positive: 0 Screen Result (Positive result requires Nsg. DAST-10): Negative Review of Systems - Review of Systems Able to Perform ROS?: Yes Is the patient limited Malian proficient: Yes Constitutional: No: Chills, Diaphoresis, Fever, Weakness HEENTM: No: Nose Pain, Nose Congestion, Throat Pain Respiratory: No: Cough, Shortness of Breath, Wheezing Cardiac (ROS): No: Chest Pain, Edema, Lightheadedness, Palpitations, Syncope, Chest Tightness ABD/GI: No: Constipated, Diarrhea, Nausea, Vomiting : No: Burning, Dysuria, Frequency Musculoskeletal: No: Gout, Muscle Pain, Muscle Weakness, Neck Pain Integumentary: No: Bruising, Pruritus, Rash Psychiatric: Yes: Sleep Pattern Change (chronic). No: Anxiety, Depression, Stressors Endocrine: No: Increased Hunger, Increased Thirst, Increased Urine, Unexplained Weight Gain, Unexplained Weight Loss Hematologic/Lymphatic: No: Anemia, Blood Clots, Easy Bleeding All Other Systems: Reviewed and Negative *Physical Exam - Vital Signs Last Vital Signs Temp Pulse Resp BP Pulse Ox 98.2 F 93 H 16 123/81 95 02/10/20 15:34 02/10/20 16:11 02/10/20 16:11 02/10/20 16:11 02/10/20 16:11 - Physical Exam 02/10/20 16:45 Vitals reviewed, AFVSS GEN: Well appearing, appears stated age, NAD, comfortable. AAOx3. HEENT: NCAT, EOMI, PERRL. Sclera anicteric, noninjected. No facial asymmetry. Moist mucous membranes. Normal voice. Trachea midline. CV: RRR, S1/S2, no murmurs / rubs / gallops appreciated. LUNG: CTABL, normal work of breathing. No wheezes, rales, rhonchi. No cough. Speaking full sentences. GI: Soft, NTND, +BS, no guarding, no rebound. No masses. EXTREMITIES: 2+ distal pulses. No clubbing / cyanosis / edema. No gross deformity in any extremity. SKIN: Warm, dry, no rashes appreciated, non-jaundiced. PSYCH: Normal mood and affect. Cooperative and appropriate. NEURO: CN grossly intact. Moving all extremities well. Normal strength and sensation grossly. ED Treatment Course - LABORATORY CBC & Chemistry Diagram: 02/10/20 15:45 02/10/20 15:00 - Medications Given in the ED: ED Medications Discontinued Medications Generic Name Dose Route Start Last Admin Trade Name Katelyn PRN Reason Stop Dose Admin Acetaminophen 1,000 mg 02/10/20 15:38 02/10/20 16:00 Ofirmev Injection - IVPB 02/10/20 15:39 1,000 mg ONCE ONE Administration Sodium Chloride 1,000 mls @ 1,000 mls/hr 02/10/20 15:38 02/10/20 16:00 Normal Saline - IV 02/10/20 16:37 1,000 mls/hr ASDIR STA Administration Medical Decision Making - Medical Decision Making 02/10/20 16:43 54yo F pmh hypothyroidism, insomnia, hypertension presenting following a transient episode of hypertension and tachycardia this morning. History notable for anxiety regarding elevated BP with subsequent tachycardia, both of which improved spontaneously after her home BP medication and time. Exam notable for stable vitals, normal exam. 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 - CBC, CMP, Cardiac profile - 1L NS, Tylenol - EKG (NSR, normal rate, rhythm, axis, intervals, no ischemic morphologies) Anticipated dispo home pending workup 02/10/20 18:42 Work up normal, patient feels well, agrees to follow up Blake Lambert, cardiology Dispo: Home Discharge - Discharge Information Problems reviewed: Yes Clinical Impression/Diagnosis: Palpitations Condition: Good Disposition: HOME - Admission No - Follow up/Referral Referrals: Payal Chaudhari MD [Primary Care Provider] - - Patient Discharge Instructions Patient Printed Discharge Instructions: DI for High Blood Pressure, DI for Palpitations Additional Instructions: You were seen and evaluated for palpitations. Please continue your home medications as directed by your doctor.' It is important to eat, drink, and take your medications to avoid blood pressure elevations and palpitations. Please follow up with your inspector coated fabrics within 2-3 days for continued care. Please discuss your insomnia with your primary care doctor. Return to the ED for any new or concerning symptoms including chest pain, nausea and vomiting, passing out, difficulty breathing. Print Language: [email or web address] - Post Discharge Activity
[2020-02-10 16:52] LABS: BASO % 0.6 % (0-2.0); HEMATOCRIT 39.4 % (32.4-45.2); HEMOGLOBIN 12.9 GM/dL (10.7-15.3); MCH 31.8 pg (25.7-33.7); MCHC 32.7 g/dl (32.0-36.0); MEAN CELL VOLUME 97.1 fl (80-96); MEAN PLT VOLUME 9.1 fl (7.5-11.1); MONO % 8.2 % (3.8-10.2); NEUT % 70.2 % (42.8-82.8); PLATELET COUNT 260 K/MM3 (134-434); RBC 4.06 M/mm3 (3.60-5.2); RDW 14.2 % (11.6-15.6); WHITE BLOOD COUNT 4.7 K/mm3 (4.0-10.0)
[2020-02-10 17:09] LABS: INR 1.01 (0.83-1.09); PROTHROMBIN TIME (PATIENT) 11.9 SEC (9.7-13.0)
[2020-02-10 17:13] LABS: ALBUMIN 3.5 g/dl (3.4-5.0); ALK PHOS 108 U/L (45-117); ANION GAP 4 MMOL/L (8-16); BILIRUBIN,TOTAL 0.5 mg/dL (0.2-1); CALCIUM 8.4 mg/dL (8.5-10.1); CHLORIDE 106 mmol/L (98-107); CO2 30 mmol/L (21-32); CREATININE 0.6 mg/dL (0.55-1.3); GLUCOSE,RANDOM 91 mg/dL (74-106); MAGNESIUM 2.3 mg/dL (1.8-2.4); SGOT/AST 30 U/L (15-37); SGPT/ALT 21 U/L (13-61); SODIUM 140 mmol/L (136-145); TOT PROT 7.3 g/dl (6.4-8.2)
[2020-02-10 18:00] LABS: URINE APPEARANCE CLEAR; URINE BILIRUBIN NEGATIVE (NEGATIVE); URINE COLOR YELLOW; URINE GLUCOSE (UA) NEGATIVE (NEGATIVE); URINE KETONE NEGATIVE (NEGATIVE); URINE LEUK ESTERASE NEGATIVE (NEGATIVE); URINE NITRITE NEGATIVE (NEGATIVE); URINE PROTEIN NEGATIVE (NEGATIVE); URINE UROBILINOGEN 0.2 mg/dL (0.2-1.0)
[2020-02-10 19:04] VITALS: BP 113/70; PULSE 68
--- NOTE | 2020-02-11 10:18 | EKG ---
Test Reason : Blood Pressure : / mmHG Vent. Rate : 095 BPM Atrial Rate : 095 BPM P-R Int : 130 ms QRS Dur : 082 ms QT Int : 354 ms P-R-T Axes : 056 027 037 degrees QTc Int : 444 ms NORMAL SINUS RHYTHM POSSIBLE LEFT ATRIAL ENLARGEMENT BORDERLINE ECG WHEN COMPARED WITH ECG OF 01-JAN-2020 16:27, NO SIGNIFICANT CHANGE WAS FOUND Confirmed by MD Arsenio, Donaldo ([id number]) on 02/11/2020 10:17:41 AM Referred By: Confirmed By:Donaldo Cesar MD
--- NOTE | 2020-02-24 00:14 | PDOC ---
Documentation entered by Anya Scott SCRIBE, acting as scribe for Yimi Jeffrey DO. Yimi Jeffrey DO: This documentation has been prepared by the Tyler rai Ana, SCRIBE, under my direction and personally reviewed by me in its entirety. I confirm that the documentation accurately reflects all work, treatment, procedures, and medical decision making performed by me. Attending Attestation - Resident Resident Name: Vick Brantley - ED Attending Attestation I have performed the following: I have examined & evaluated the patient, The case was reviewed & discussed with the resident, I agree w/resident's findings & plan, Exceptions are as noted - HPI HPI: 02/10/20 17:04 Patient is a 54 year old female with a significant past medical history of hypothyroidism, insomnia, and hypertension who presents to the ED with high blood pressure and palpitations since earlier today. Patient stated she took her blood pressure this morning and it was high so she became nervous and had palptiations w assoc chest tightness wo sob. Admits to some assoc dizziness as well. Patient also reports she had chest tightness, anxiety and a headache that was resolved with Tylenol. Patient disclosed that she has poor PO because she does not like drinking water or eating and that she has not slept well x2 days and has been under alot of stress Patient denies: any other related symptoms. Allergies: NKDA 02/10/20 18:18 - Physicial Exam PE: 02/10/20 17:15 See resident exam. - Medical Decision Making 02/10/20 18:20 54 yo female w/anxiety and stage 1 htn here for palpitations and anxiety after seeing elevated bp at home prior to taking home bp meds Plan Reassurance [id number] Normal sinus rythm normal axi and intervals no acute ischemia, no bruga da no acute ischemia Labs / CE REassessment Given pt return precautions and follow up 02/10/20 18:25 Discharge - Discharge Information Clinical Impression/Diagnosis: Palpitations Condition: Good Disposition: HOME - Follow up/Referral Referrals: Payal Chaudhari MD [Primary Care Provider] - - Patient Discharge Instructions Patient Printed Discharge Instructions: DI for High Blood Pressure, DI for Pa lpitations Additional Instructions: You were seen and evaluated for palpitations. Please continue your home medications as directed by your doctor.' It is important to eat, drink, and take your medications to avoid blood pressure elevations and palpitations. Please follow up with your heel wheeler within 2-3 days for continued care. Please discuss your insomnia with your primary care doctor. Return to the ED for any new or concerning symptoms including chest pain, nausea and vomiting, passing out, difficulty breathing. Print Language: [email or web address] - Post Discharge Activity
== END 2020-02-10 19:05 | disposition home or self-care (01) ==
LOC: JER 15:26
PROC: 3E0333Z Introduction of Anti-inflammatory into Peripheral Vein, Percutaneous Approach (ICD-10-PCS; principal; 2020-02-10)
PROC: 3E0337Z Introduction of Electrolytic and Water Balance Substance into Peripheral Vein, Percutaneous Approach (ICD-10-PCS; 2020-02-10)
DX: R00.2 Palpitations (principal)
CPT/HCPCS: 36415; 80053; 81003; 82550; 83735; 84443; 84484; 85025; 85610; 93005; 93010; 96361; 96374; 99284-25; J0131

== ENCOUNTER 2022-01-19 18:21 | Emergency (ER) | payer OTHER ==
[2022-01-19 18:26] VITALS: BP 116/77; PULSE 74; RESP 18; TEMP 98.4; BMI 31.3
[2022-01-19] MEDS ORDERED: LIDOCAINE 5% TOPICAL PATCH TP ONE (21:02)
[2022-01-19] MEDS ORDERED: KETOROLAC TROMETHAMINE 30 MG/1 ML VIAL IM ONE (21:03)
[2022-01-19] MEDS ORDERED: LIDOCAINE 5% TOPICAL PATCH ONE (21:07)
[2022-01-19] MEDS ORDERED: KETOROLAC TROMETHAMINE 30 MG/1 ML VIAL ONE (21:07)
[2022-01-20] MEDS ORDERED: LIDOCAINE PATCH REMOVAL MC SCH (09:00)
== END 2022-01-19 22:30 | disposition home or self-care (01) ==
LOC: JERFT 18:21
PROC: 3E0233Z Introduction of Anti-inflammatory into Muscle, Percutaneous Approach (ICD-10-PCS; principal; 2022-01-19)
DX: M25.561 Pain in right knee (principal)
CPT/HCPCS: 73562-TC-RT-FY; 93971-TC; 99284-25

== ENCOUNTER 2022-02-22 10:18 | Emergency (ER) | payer OTHER ==
[2022-02-22] MEDS ORDERED: FAMOTIDINE 20 MG/50 ML IVPB 20 MG/50 ML MG IVPB ONE ×2 (10:41→10:51)
[2022-02-22] MEDS ORDERED: methylPREDNISolone NA SUCC 125 MG/2 ML VIAL IVPUSH ONE (10:41)
[2022-02-22] MEDS ORDERED: methylPREDNISolone NA SUCC 125 MG/2 ML VIAL ONE (10:51)
[2022-02-22 11:25] VITALS: BMI 34.7
[2022-02-22] MEDS ORDERED: TRANEXAMIC ACID 1000 MG/10 ML VIAL IVPUSH ONE (13:13)
[2022-02-22] MEDS ORDERED: TRANEXAMIC ACID 1000 MG/10 ML VIAL ONE (13:42)
[2022-02-22 14:15] LABS: BASO % 0.2 % (0-2.0); EOS % 0.1 % (0-4.5); HEMATOCRIT 37.2 % (32.4-45.2); HEMOGLOBIN 12.5 GM/dL (10.7-15.3); LYMPH % 9.5 % (8-40); MCH 31.9 pg (25.7-33.7); MCHC 33.6 g/dl (32.0-36.0); MEAN PLT VOLUME 8.5 fl (7.5-11.1); MONO % 1.3 % (3.8-10.2); NEUT % 88.9 % (42.8-82.8); PLATELET COUNT 254 10^3/uL (134-434); RBC 3.92 M/mm3 (3.60-5.2); RDW 13.6 % (11.6-15.6); WHITE BLOOD COUNT 4.2 K/mm3 (4.0-10.0)
[2022-02-22 14:40] LABS: ALBUMIN 3.2 g/dl (3.4-5.0); CALCIUM 8.7 mg/dL (8.5-10.1)
[2022-02-22 14:43] LABS: BILIRUBIN,TOTAL 0.4 mg/dL (0.2-1); CREATININE 0.6 mg/dL (0.55-1.3); TOT PROT 6.7 g/dl (6.4-8.2)
[2022-02-22 17:24] VITALS: BP 131/77; PULSE 78; RESP 18; TEMP 98.8
== END 2022-02-22 17:28 | disposition home or self-care (01) ==
LOC: JER 10:18
PROC: 3E033GC Introduction of Other Therapeutic Substance into Peripheral Vein, Percutaneous Approach (ICD-10-PCS; principal; 2022-02-22)
DX: T78.3XXA Angioneurotic edema, initial encounter (principal)
CPT/HCPCS: 36415; 36430; 80053; 85025; 86850; 86900; 86901; 93005; 93010; 99284-25; P9017

== ENCOUNTER 2022-04-22 20:36 | Emergency (ER) | payer OTHER ==
[2022-04-22 21:07] VITALS: RESP 18; TEMP 98.2; BMI 30.8
[2022-04-22] MEDS ORDERED: LACTATED RINGERS SOLUTION 1000 ML INFUS.BAG IV ONE (21:40)
[2022-04-22 22:37] LABS: BASO % 0.6 % (0-2.0); EOS % 1.8 % (0-4.5); HEMATOCRIT 35.3 % (32.4-45.2); HEMOGLOBIN 11.8 GM/dL (10.7-15.3); LYMPH % 41.2 % (8-40); MCH 32.1 pg (25.7-33.7); MCHC 33.5 g/dl (32.0-36.0); MEAN CELL VOLUME 95.9 fl (80-96); MEAN PLT VOLUME 8.6 fl (7.5-11.1); MONO % 8.4 % (3.8-10.2); PLATELET COUNT 239 10^3/uL (134-434); RBC 3.68 M/mm3 (3.60-5.2); RDW 13.6 % (11.6-15.6); WHITE BLOOD COUNT 4.1 K/mm3 (4.0-10.0)
[2022-04-22 22:40] LABS: EPI CELLS 17 /uL (0-25.1); HYALINE CASTS 0 /uL (0-3.1); URINE APPEARANCE CLEAR; URINE BACTERIA 476 /uL (0-1359); URINE BILIRUBIN NEGATIVE (NEGATIVE); URINE COLOR YELLOW; URINE GLUCOSE (UA) NEGATIVE (NEGATIVE); URINE KETONE NEGATIVE (NEGATIVE); URINE LEUK ESTERASE 3+ (NEGATIVE); URINE NITRITE NEGATIVE (NEGATIVE); URINE PROTEIN NEGATIVE (NEGATIVE); URINE RBC 9 /uL (0-23.9); URINE UROBILINOGEN 0.2 mg/dL (0.2-1.0); URINE WBC 316 /uL (0-25.8)
[2022-04-22 22:50] LABS: ALBUMIN 3.5 g/dl (3.4-5.0); CALCIUM 8.8 mg/dL (8.5-10.1)
[2022-04-22 22:51] LABS: BLOOD UREA NITROGEN 19.8 mg/dL (7-18)
[2022-04-22 22:52] LABS: CREATININE 0.6 mg/dL (0.55-1.3)
[2022-04-22 22:55] LABS: BILIRUBIN,TOTAL 0.4 mg/dL (0.2-1); TOT PROT 6.4 g/dl (6.4-8.2)
[2022-04-22] MEDS ORDERED: CEFTRIAXONE 1,000 MG in DEXTROSE 5%-WATER - 50 ML IVPB ONE (23:02)
[2022-04-22] MEDS ORDERED: CEFTRIAXONE 1 GM/50 ML BAG ONE (23:13)
[2022-04-23 00:11] VITALS: BP 134/82; PULSE 56
== END 2022-04-23 00:12 | disposition home or self-care (01) ==
LOC: JER 20:36
DX: N39.0 Urinary tract infection, site not specified (principal)
CPT/HCPCS: 36415; 80053; 81003; 83735; 84100; 84484; 85025; 87077; 87086; 93005; 93010; 99284-25

== ENCOUNTER 2022-08-15 05:57 | Day surgery (SDC) | payer OTHER ==
[2022-08-09 18:03] VITALS: BMI 31.4
[2022-08-15] MEDS ORDERED: SUCCINYLCHOLINE CHLORIDE 200 MG/10 ML SYRINGE ONE (06:56)
[2022-08-15] MEDS ORDERED: MIDAZOLAM HCL 2 MG/2 ML SINGLE DOSE VIAL ONE (06:56)
[2022-08-15] MEDS ORDERED: PROPOFOL 20 ML ONE (06:56)
[2022-08-15] MEDS ORDERED: BUPIVACAINE HCL/PF 0.25% (2.5MG/ML) 10 ML VIAL ONE (07:15)
[2022-08-15] MEDS ORDERED: BUPIVACAINE HCL/EPINEPHRINE/PF 30 ML VIAL IJ ONE (07:15)
[2022-08-15] MEDS ORDERED: EPINEPHrine 1:1,000 1,000 MCG/ML ML ONE (07:16)
[2022-08-15] MEDS ORDERED: BUPIVACAINE 0.25% /EPI 1:200,000 10 ML VIAL INF ONE (07:53)
[2022-08-15] MEDS ORDERED: ACETAMINOPHEN 1000 MG/100 ML BAG IVPB ONE (08:40)
[2022-08-15] MEDS ORDERED: oxyCODONE HCL 5 MG TABLET PO PRN (08:40)
[2022-08-15] MEDS ORDERED: ONDANSETRON 4 MG/2 ML VIAL IVPUSH PRN (08:40)
[2022-08-15] MEDS ORDERED: LACTATED RINGERS SOLUTION 1,000 ML IV SCH (08:45)
[2022-08-15] MEDS ORDERED: ONDANSETRON 4 MG/2 ML VIAL ONE (09:10)
[2022-08-15] MEDS ORDERED: FENTANYL CITRATE/PF 50 MCG/ML VIAL ONE (09:10)
[2022-08-15 10:43] VITALS: PULSE 72; RESP 16; TEMP 97.9
[2022-08-15 11:14] VITALS: BP 129/82
== END 2022-08-15 14:00 | disposition home or self-care (01) ==
LOC: FASU 05:57
PROVIDERS: ATTEND Orthopaedic Surgery
PROC: 0SBC4ZZ Excision of Right Knee Joint, Percutaneous Endoscopic Approach (ICD-10-PCS; principal; 2022-08-15 07:53)
DX: S83.241A Other tear of medial meniscus, current injury, right knee, initial encounter (principal); M94.261 Chondromalacia, right knee; M65.9 Synovitis and tenosynovitis, unspecified
CPT/HCPCS: 94760

== ENCOUNTER 2023-01-12 05:06 | Day surgery (SDC) | payer OTHER ==
[2023-01-11 10:03] VITALS: BMI 34.1
[2023-01-12 09:33] VITALS: TEMP 97.3
[2023-01-12 09:47] VITALS: RESP 19
[2023-01-12 10:03] VITALS: BP 138/84; PULSE 70
== END 2023-01-12 10:49 | disposition home or self-care (01) ==
LOC: JASU-ENDO 05:06
PROVIDERS: ATTEND Internal Medicine Gastroenterology
PROC: 0DB78ZX Excision of Stomach, Pylorus, Via Natural or Artificial Opening Endoscopic, Diagnostic (ICD-10-PCS; 2023-01-12)
PROC: 0DB68ZX Excision of Stomach, Via Natural or Artificial Opening Endoscopic, Diagnostic (ICD-10-PCS; principal; 2023-01-12 09:00)
DX: K29.50 Unspecified chronic gastritis without bleeding (principal); B96.81 Helicobacter pylori [H. pylori] as the cause of diseases classified elsewhere; K25.9 Gastric ulcer, unspecified as acute or chronic, without hemorrhage or perforation
CPT/HCPCS: 88305-TC; 88341-TC; 88342-TC

== ENCOUNTER 2023-03-21 04:16 | Day surgery (SDC) | payer OTHER ==
[2023-03-20 13:30] VITALS: BMI 33.8
[~2023-03-21 04:16] MED LIST changes: -BUPIVACAINE HCL/PF 0.5% (5MG/ML) 10 ML VIAL IJ ONE; +BUPIVACAINE HCL/PF 0.75% 10 ML VIAL NR ONE; +LIDOCAINE HCL 1% PRESERVATIVE FREE - 30ML VIAL IJ ONE
[2023-03-21] MEDS ORDERED: ACETAMINOPHEN 500 MG TABLET (FP) PO PRN (11:12)
[2023-03-21 11:28] VITALS: RESP 20
[2023-03-21] MEDS ORDERED: BUPIVACAINE HCL/PF 0.75% 10 ML VIAL NR ONE (12:58)
[2023-03-21] MEDS ORDERED: LIDOCAINE HCL 1% PRESERVATIVE FREE - 30ML VIAL IJ ONE (12:58)
[2023-03-21 16:58] VITALS: BP 116/72; PULSE 80; TEMP 97.7
== END 2023-03-21 14:05 | disposition home or self-care (01) ==
LOC: JASU-SURG 04:16
PROVIDERS: ATTEND Pain Medicine Pain Medicine
PROC: 3E0T33Z Introduction of Anti-inflammatory into Peripheral Nerves and Plexi, Percutaneous Approach (ICD-10-PCS; 2023-03-21)
PROC: 3E0T3BZ Introduction of Anesthetic Agent into Peripheral Nerves and Plexi, Percutaneous Approach (ICD-10-PCS; principal; 2023-03-21 13:00)
DX: M47.816 Spondylosis without myelopathy or radiculopathy, lumbar region (principal)
CPT/HCPCS: 76000-TC-FY

== ENCOUNTER 2024-01-04 04:22 | Day surgery (SDC) | payer OTHER ==
[2024-01-01 16:58] VITALS: BMI 33.8
[2024-01-04] MEDS ORDERED: LIDOCAINE HCL/PF 1% SDV 5ML VIAL ONE (12:15)
[2024-01-04] MEDS: BUPIVACAINE HCL/PF 0.75% 10 ML VIAL NR ONE (12:26)
[2024-01-04 14:01] VITALS: BP 118/78; PULSE 86; RESP 20; TEMP 97.8
[2024-01-04] MEDS ORDERED: ACETAMINOPHEN 500 MG TABLET (FP) PO PRN (15:29)
== END 2024-01-04 13:00 | disposition home or self-care (01) ==
LOC: JASU-SURG 04:22
PROVIDERS: ATTEND Pain Medicine Pain Medicine
PROC: 3E0T33Z Introduction of Anti-inflammatory into Peripheral Nerves and Plexi, Percutaneous Approach (ICD-10-PCS; 2024-01-04)
PROC: 3E0T3BZ Introduction of Anesthetic Agent into Peripheral Nerves and Plexi, Percutaneous Approach (ICD-10-PCS; principal; 2024-01-04 11:45)
DX: M47.816 Spondylosis without myelopathy or radiculopathy, lumbar region (principal)
CPT/HCPCS: 76000-TC-FY

== ENCOUNTER 2024-04-12 04:15 | Day surgery (SDC) | payer OTHER ==
[2024-04-10 14:30] VITALS: BMI 33.8
[2024-04-12] MEDS ORDERED: BUPIVACAINE HCL/PF 0.5% (5MG/ML) 10 ML VIAL ONE (07:18)
[2024-04-12] MEDS ORDERED: LIDOCAINE HCL/PF 2% SDV 5ML VIAL ONE (07:18)
[2024-04-12] MEDS ORDERED: LIDOCAINE HCL/PF 1% SDV 5ML VIAL ONE (07:18)
[2024-04-12] MEDS ORDERED: DEXAMETHASONE SOD PHOSPHATE 10 MG/1 ML VIAL ONE (07:19)
[2024-04-12] MEDS ORDERED: BUPIVACAINE HCL/PF 0.75% 10 ML VIAL ONE (07:28)
[2024-04-12] MEDS ORDERED: ACETAMINOPHEN 500 MG TABLET (FP) PO PRN (08:33)
[2024-04-12] MEDS: LIDOCAINE HCL 1% PRESERVATIVE FREE - 30ML VIAL IJ ONE ×2 (10:47)
[2024-04-12] MEDS: BUPIVACAINE HCL/PF 0.75% 10 ML VIAL NR ONE (10:47)
[2024-04-12] MEDS: DEXAMETHASONE SOD PHOSPHATE 10 MG/1 ML VIAL IVPUSH ONE ×2 (10:47)
[2024-04-12] MEDS: LIDOCAINE HCL/PF 2% SDV 5ML VIAL INF ONE ×2 (10:47)
[2024-04-12 12:19] VITALS: RESP 18
[2024-04-12 12:22] VITALS: BP 135/77; PULSE 70; TEMP 98.5
== END 2024-04-12 11:50 | disposition home or self-care (01) ==
LOC: JASU-SURG 04:15
PROVIDERS: ATTEND Pain Medicine Pain Medicine
PROC: 015B3ZZ Destruction of Lumbar Nerve, Percutaneous Approach (ICD-10-PCS; principal; 2024-04-12 10:43)
DX: M47.816 Spondylosis without myelopathy or radiculopathy, lumbar region (principal)
CPT/HCPCS: 76000-TC-FY; J1100

== ENCOUNTER 2024-06-06 04:15 | Day surgery (SDC) | payer OTHER ==
[2024-06-05 12:44] VITALS: BMI 31.7
[2024-06-06 12:55] VITALS: RESP 18
[2024-06-06] MEDS ORDERED: DEXAMETHASONE SOD PHOSPHATE 10 MG/1 ML VIAL ONE (13:23)
[2024-06-06] MEDS ORDERED: ACETAMINOPHEN 500 MG TABLET (FP) ONE (14:29)
[2024-06-06] MEDS: ACETAMINOPHEN 500 MG TABLET (FP) PO PRN (14:35)
[2024-06-06 16:29] VITALS: BP 130/72; PULSE 64; TEMP 97.7
== END 2024-06-06 15:27 | disposition home or self-care (01) ==
LOC: JASU-SURG 04:15
PROVIDERS: ATTEND Pain Medicine Pain Medicine
PROC: 015B3ZZ Destruction of Lumbar Nerve, Percutaneous Approach (ICD-10-PCS; principal; 2024-06-06 15:00)
DX: M47.816 Spondylosis without myelopathy or radiculopathy, lumbar region (principal)
CPT/HCPCS: 76000-TC-FY; J1100